=== PATIENT | male | born 1980 ===

== ENCOUNTER 2025-02-27 06:44 | Day surgery (SDC) | payer OTHER ==
[2025-02-20 09:08] LABS: PH,URINE 6.5 (5.0-8.0); URINE APPEARANCE Clear; URINE BILIRRUBIN Negative (NEGATIVE); URINE BLOOD Negative; URINE COLOR Yellow; URINE GLUCOSE Negative (NEGATIVE); URINE KETONE Negative (NEGATIVE); URINE LEUKOCYTE Negative; URINE NITRATE Negative; URINE PROTEIN Negative (NEGATIVE)
[2025-02-20 09:12] LABS: URINE EPITHELIAL CELLS 1.5 uL (0.0-38.8); URINE RBC 3.3 uL (0.0-20.8)
[2025-02-20 09:15] LABS: HEMATOCRIT 45.5 % (39.0-48.0); HEMOGLOBIN 15.3 g/dL (13-16.00); MEAN CELL VOLUME 88.9 fL (80.0-100.00); MEAN CORPUSCULAR HEMOGLOBIN 29.9 pg (27.00-32.0); MEAN CORPUSCULAR HGB CONC 33.6 g/dl (32.0-36.0); PLATELET COUNT 316 K/uL (150-450); RED BLOOD COUNT 5.12 M/uL (4.00-6.00); RED CELL DISTRIBUTION WIDTH 13.7 % (11.5-14.5)
[2025-02-20 09:41] LABS: CREATININE SERUM 0.98 mg/dL (0.70-1.30); GFR 82.71; POTASSIUM 4.38 mEq/L (3.5-5.1)
[2025-02-20 09:50] LABS: INR 1.03; PARTIAL THROMBOPLASTIN TIME 25.2 SECONDS (22.0-34.0); PROTHROMBIN TIME 11.2 SECONDS (9.0-11.5)
[2025-02-20 09:51] LABS: URINE BACTERIA 2.4 uL (0.0-1933); URINE WBC 0.7 uL (0.0-23.2)
[2025-02-20 10:10] VITALS: BP 14/80
[~2025-02-27] VITALS: Ht 172.7 cm; Wt 81.6 kg
[2025-02-27] MEDS ORDERED: METRONIDAZOLE/SODIUM CHLORIDE 500 MG/100 ML PIGGYBACK IV ONE ×2 (09:06→12:45)
[2025-02-27] MEDS ORDERED: ENOXAPARIN SODIUM 40 MG/0.4 ML SYRINGE SUBCUTANEO ONE ×3 (09:06→12:45)
[2025-02-27] MEDS ORDERED: CEFTRIAXONE SODIUM 2,000 MG VIAL ONE (09:06)
[2025-02-27] MEDS ORDERED: BUPIVACAINE HCL/MPF 0.5% 30ML VIAL ONE (11:11)
[2025-02-27] MEDS ORDERED: BUPIVACAINE HCL 30 ML VIAL IJ ONE (12:45)
[2025-02-27] MEDS ORDERED: CEFTRIAXONE SODIUM 2,000 MG VIAL IV ONE (12:45)
[2025-02-27] MEDS ORDERED: PERCOCET 5-3251 EACH PO (13:56)
[2025-02-27] MEDS ORDERED: POLY119PG PO (13:57)
[2025-02-27] MEDS ORDERED: NEURONTIN300 MG PO (13:57)
[2025-02-27] MEDS ORDERED: CELEBREX200MG PO (13:57)
[2025-02-27] MEDS ORDERED: MORPHINE SULFATE 4 MG/ML VIAL IV ONE (14:55)
== END 2025-02-27 16:45 | disposition home or self-care (01) ==
LOC: CIR.AMB 06:44
PROVIDERS: ATTEND Surgery
DX: K40.90 Unilateral inguinal hernia, without obstruction or gangrene, not specified as recurrent (principal)
CPT/HCPCS: 49650; C1781